=== PATIENT | female | born 1995 | race African-American/Black ===

== ENCOUNTER 2017-07-09 11:08 | Emergency (ER) | payer OTHER ==
[~2017-07-09] VITALS: Ht 157.5 cm; Wt 48.0 kg
[2017-07-09 11:24] VITALS: TEMP 37.5; Ht 157.5 cm; Wt 48.0 kg
[2017-07-09] MEDS ORDERED: ONDANSETRON INJ 2 MG/ML 2 ML VIAL IV STA ×2 (13:01→13:12)
[2017-07-09] MEDS ORDERED: SODIUM CHLORIDE 0.9% 1000ML 1,000 ML IV STA (13:01)
[2017-07-09] MEDS ORDERED: IBUPROFEN 200 MG TAB PO STA (13:03)
[2017-07-09] MEDS ORDERED: COUGH DROP (SUGAR FREE) LOZ 24 LOZ/1 BOX LOZ STA (13:03)
--- NOTE | 2017-07-09 13:07 | EMERGENCY ROOM VISIT NOTE ---
History Report prepared by Malou: Celso Hoang Under the Supervision of: Dr. Heriberto Pederson M.D. First contact with patient: 12:44 Chief Complaint: FLU LIKE SX Stated Complaint: SORE MUSCLES, COUGH, CHANDLER/HEADACHE HOT FLAS History of Present Illness The patient is a 22 year old female who presents to the Emergency Room with complaints of flu like symptoms for the past three days. The patient notes that her throat is sore and she is having difficulty swallowing. She also complains of persistent diarrhea and abdominal cramping, as well as constant nausea but she has not vomited. She has a headache and diffuse muscle soreness. The patient noted that as she was sleeping last night she was feeling feverish and chills intermittently. She woke up diaphoretic several times. The patient denies any associated LOC, visual changes, neck pain, chest pain, breathing difficulties, nausea, back pain, melena, hematochezia, urinary symptoms, numbness, weakness, lymphadenopathy, rash, or other complaints. Review of Systems See HPI for pertinent positives and negatives. A total of ten systems were reviewed and were otherwise negative. Past Medical & Surgical Patient denies any past medical/surgical history Family History Cancer Diabetes mellitus Heart disease Hypertension Kidney disease Kidney stones Social History Smoking Status: Never Smoker Marital Status: single Occupation Status: employed, [employer] student Current/Historical Medications No Active Prescriptions or Reported Meds Allergies Coded Allergies: Penicillins (Unverified Allergy, Severe, HIVES, "CAN'T BREATH", 07/09/17) Sulfamethoxazole w/Trimethoprim (Unverified Allergy, Severe, HIVES, CAN'T BREATH, 07/09/17) Physical Exam Vital Signs Date Time Temp Pulse Resp B/P (MAP) Pulse Ox O2 Delivery O2 Flow Rate FiO2 07/09/17 14:50 78 18 116/68 98 Room Air 07/09/17 13:44 117 07/09/17 11:24 37.5 115 18 121/83 99 Physical Exam GENERAL: Awake, alert, mildly ill appearing, no distress HEAD: Normocephalic, atraumatic. No edema. EYES: Normal conjunctiva. Sclera non-icteric. EARS: Right TM normal. Left TM normal. NOSE: Mild congestion. OROPHARYNX: Lips, tongue, and mucosa unremarkable. No erythema or exudate. The tip of the epiglottis is visible and is normal. NECK: Supple. No nuchal rigidity. FROM. No adenopathy. Negative jolt accentuation test. RESPIRATORY: CTA bilaterally. No wheezes rales or rhonchi. CARDIAC: Borderline tachycardic rate, normal rhythm. ABDOMEN: Soft, non distended. No tenderness to palpation. NEURO: Normal sensorium. SKIN: No rash or jaundice noted Medical Decision & Procedures Laboratory Results 07/09/17 13:45 Red Blood Count 5.25, Mean Corpuscular Volume 73.5, Mean Corpuscular Hemoglobin 26.5, Mean Corpuscular Hemoglobin Concent 36.0, Mean Platelet Volume 10.3, Neutrophils (%) (Auto) 63.6, Lymphocytes (%) (Auto) 17.8, Monocytes (%) (Auto) 17.0, Eosinophils (%) (Auto) 0.5, Basophils (%) (Auto) 0.8, Neutrophils # (Auto ) 4.66, Lymphocytes # (Auto) 1.31, Monocytes # (Auto) 1.25, Eosinophils # (Auto ) 0.04, Basophils # (Auto) 0.06 07/09/17 13:45 Test 07/09/17 13:35 07/09/17 13:45 07/09/17 14:49 Influenza Type A Antigen Neg for Influ A (NEG) Influenza Type B Antigen Neg for Influ B (NEG) White Blood Count 7.34 K/uL (4.8-10.8) Red Blood Count 5.25 M/uL (4.2-5.4) Hemoglobin 13.9 g/dL (12.0-16.0) Hematocrit 38.6 % (37-47) Mean Corpuscular Volume 73.5 fL (80-100) Mean Corpuscular Hemoglobin 26.5 pg (25-34) Mean Corpuscular Hemoglobin Concent 36.0 g/dl (32-36) Platelet Count 196 K/uL (130-400) Mean Platelet Volume 10.3 fL (7.4-10.4) Neutrophils (%) (Auto) 63.6 % Lymphocytes (%) (Auto) 17.8 % Monocytes (%) (Auto) 17.0 % Eosinophils (%) (Auto) 0.5 % Basophils (%) (Auto) 0.8 % Neutrophils # (Auto) 4.66 K/uL (1.4-6.5) Lymphocytes # (Auto) 1.31 K/uL (1.2-3.4) Monocytes # (Auto) 1.25 K/uL (0.11-0.59) Eosinophils # (Auto) 0.04 K/uL (0-0.5) Basophils # (Auto) 0.06 K/uL (0-0.2) RDW Standard Deviation 37.0 fL (36.4-46.3) RDW Coefficient of Variation 13.8 % (11.5-14.5) Immature Granulocyte % (Auto) 0.3 % Immature Granulocyte # (Auto) 0.02 K/uL (0.00-0.02) Neutrophils % (Manual) 69.3 % Lymphocytes % (Manual) 14.9 % Monocytes % (Manual) 14.9 % Basophils % (Manual) 0.9 % Neutrophils # (Manual) 5.09 K/uL (1.4-6.5) Total Absolute Neutrophils 5.09 K/uL (1.4-6.5) Lymphocytes # (Manual) 1.09 K/uL (1.2-3.4) Total Absolute Lymphocytes 1.09 K/uL (1.2-3.4) Monocytes # (Manual) 1.09 K/uL (0.11-0.59) Basophils # (Manual) 0.07 K/uL (0-0.2) Anion Gap 8.0 mmol/L (3-11) Est Creatinine Clear Calc Drug Dose 71.9 ml/min Estimated GFR () 101.1 Estimated GFR (Non- 87.2 BUN/Creatinine Ratio 8.3 (10-20) Calcium Level 8.9 mg/dl (8.5-10.1) Total Bilirubin 0.5 mg/dl (0.2-1) Direct Bilirubin 0.1 mg/dl (0-0.2) Aspartate Amino Transf (AST/SGOT) 22 U/L (15-37) Alanine Aminotransferase (ALT/SGPT) 21 U/L (12-78) Alkaline Phosphatase 45 U/L (45-117) Total Protein 8.2 gm/dl (6.4-8.2) Albumin 4.1 gm/dl (3.4-5.0) Lipase 96 U/L (73-393) Human Chorionic Gonadotropin, Qual NEG (NEG) Laboratory results reviewed by me Medications Administered Medications (Trade) Dose Ordered Sig/Margot Route Start Time Stop Time Status Last Admin Dose Admin Sodium Chloride 1,000 ml @ 999 mls/hr Q1H1M STAT IV 07/09/17 13:01 07/09/17 14:01 DC 07/09/17 13:59 999 MLS/HR Ondansetron HCl (Zofran Inj) 4 mg NOW STAT IV 07/09/17 13:01 07/09/17 13:03 DC 07/09/17 13:59 4 MG Ibuprofen (Advil Tab) 400 mg NOW STAT PO 07/09/17 13:03 07/09/17 13:04 DC 07/09/17 14:00 400 MG Menthol (Nice Deneen) 1 deneen NOW STAT DENEEN 07/09/17 13:03 07/09/17 13:04 DC 07/09/17 14:00 1 DENENE Potassium Chloride (Klor-Con M10) 20 meq NOW STAT PO 07/09/17 14:48 07/09/17 14:49 DC 07/09/17 14:59 20 MEQ ED Course 1259: The patient was evaluated in room B2. A complete history and physical exam was performed. 1301: Ordered Zofran 4 mg IV, Sodium Chloride 1000 mL @ 999 mL/hr IV. 1303: Ordered Menthol 1 deneen, Advil 400 mg PO. 1312: Ordered Zofran 4 mg IV. 1442: I reevaluated the patient. Discussed results and discharge instructions: She verbalized understanding and agreement. The patient is ready for discharge. 1448: Ordered Potassium Chloride 20 meq PO. 1515: Ordered Zofran 1 homepack PO. Medical Decision Triage Nursing notes reviewed and agree them. The patient's history was concerning for flulike symptoms. Differential diagnosis: Etiologies such as viral syndrome, gastroenteritis, electrolyte abnormality, dehydration, otitis, pharyngitis, pneumonia, influenza,meningitis, urinary tract infection, sepsis, bacteremia, as well as others were entertained. Physical examination: As above. No meningeal findings. Benign abdomen. Oropharynx examination unremarkable. ER treatment provided: Oral Motrin IV Zofran IV normal saline Cepacol lozenge On reassessment the patient felt much better. Oral potassium Diagnostics interpreted by me: The labs revealed a remarkable CBC. Chemistry panel revealed hypokalemia. Flu testing negative. Imaging studies: Deferred. Normal pulmonary examination. The patient had significant diarrhea that is getting better. She has hypokalemia. She has flulike symptoms but flu testing is negative. Urine culture is pending but urine dipstick was unremarkable. She denied any significant urinary symptoms. Viral syndrome as the frequency and the universe is extremely high at this point in time. Conservative management was discussed. The patient felt comfortable. By the evaluation outlined above emergent etiologies such as otitis, pharyngitis, pneumonia, meningitis, urinary tract infection, sepsis, bacteremia , as well as others were deemed relatively unlikely. The patient was informed about the findings as listed above. All questions were answered and she was pleased with the treatment. Return instructions were outlined and the patient was discharged in stable condition. Outpatient prescription management: Zofran home pack Referral: The patient was referred back to [facility] primary care physician for follow-up in 2 to 3 days for a recheck of the current condition. Impression Primary Impression: Viral syndrome Additional Impressions: Hypokalemia Nausea Scribe Attestation The scribe's documentation has been prepared under my direction and personally reviewed by me in its entirety. I confirm that the note above accurately reflects all work, treatment, procedures, and medical decision making performed by me. Departure Information Dispostion Home / Self-Care Prescriptions No Active Prescriptions or Reported Meds Referrals No Doctor, Assigned (PCP) Forms HOME CARE DOCUMENTATION FORM, IMPORTANT VISIT INFORMATION Patient Instructions [facility] Additional Instructions Zofran 4 mg oral dissolving tablets: take one tablet and allow it to melt in your mouth every 4 hours as needed for nausea. Acetaminophen(Tylenol) may be used for fever or pain. Use 650 mg every six hours as needed. (AND/OR) Ibuprofen(Motrin, Advil) may be used for fever or pain. Use 400mg every six hours as needed. Take with food. Prolonged inappropriate use can lead to stomach upset or ulcers. Cepacol or similar lozenges as needed for sore throat. Rest and drink plenty of fluids such as Gatorade or Powerade. Controlling your fever with Tylenol and Ibuprofen as above will make you feel better. Return to the ER for severe headache, neck stiffness, chest pain, difficulty breathing, fevers, vomiting, worsening of your condition, or as needed. Follow up with [facility] this week for a recheck of your current condition. Problem Qualifiers
[2017-07-09 14:02] LABS: BASO % 0.8 %; BASO ABS # 0.06 K/uL (0-0.2); EOS % 0.5 %; EOS ABS # 0.04 K/uL (0-0.5); HEMATOCRIT 38.6 % (37-47); HEMOGLOBIN 13.9 g/dL (12.0-16.0); IG# 0.02 K/uL (0.00-0.02); LYMPH % 17.8 %; LYMPH ABS # 1.31 K/uL (1.2-3.4); MEAN CELL VOLUME 73.5 fL (80-100); MEAN CORPUSCULAR HEMOGLOBIN 26.5 pg (25-34); MEAN PLATELET VOLUME 10.3 fL (7.4-10.4); MONO ABS # 1.25 K/uL (0.11-0.59); NEUT % 63.6 %; NEUT ABS # 4.66 K/uL (1.4-6.5); PLATELET COUNT 196 K/uL (130-400); RED CELL DISTRIBUTION WIDTH CV 13.8 % (11.5-14.5); WHITE BLOOD COUNT 7.34 K/uL (4.8-10.8)
[2017-07-09 14:20] LABS: INFLUENZA B ANTIGEN Neg for Influ B (NEG)
[2017-07-09 14:25] LABS: ALBUMIN 4.1 gm/dl (3.4-5.0); CALCIUM 8.9 mg/dl (8.5-10.1); CREATININE 0.93 mg/dl (0.60-1.20)
[2017-07-09 14:28] LABS: TOTAL PROTEIN 8.2 gm/dl (6.4-8.2)
[2017-07-09] MEDS ORDERED: POTASSIUM CHLORIDE 10 MEQ TABCR PO STA (14:48)
[2017-07-09 14:50] VITALS: BP 116/68; PULSE 78; O2SAT 98
[2017-07-09] MEDS ORDERED: ONDANSETRON HOME PACK 4MG OD TAB PO ONE (15:15)
== END 2017-07-09 15:02 | disposition home or self-care (01) ==
LOC: C.EDB 11:09
DX: B34.9 Viral infection, unspecified (principal); E87.6 Hypokalemia; Z80.9 Family history of malignant neoplasm, unspecified; Z83.3 Family history of diabetes mellitus; Z82.49 Family history of ischemic heart disease and other diseases of the circulatory system; Z84.1 Family history of disorders of kidney and ureter